=== PATIENT | male | born 1965 ===

== ENCOUNTER 2022-01-28 14:07 | Outpatient (CLI) | payer BC ==
[2022-01-28] MEDS ORDERED: Iopamidol-370 76% 500 ML 1 ML ONE (14:31)
== END 2022-01-28 14:08 | disposition home or self-care (01) ==
LOC: BICCT 14:07
PROVIDERS: ATTEND Oral & Maxillofacial Surgery
DX: M27.2 Inflammatory conditions of jaws (principal); I10 Essential (primary) hypertension; J45.909 Unspecified asthma, uncomplicated
CPT/HCPCS: 70487; 82565; Q9967